=== PATIENT | male | born 2000 | race Caucasian/White ===

== ENCOUNTER 2023-05-23 15:17 | Emergency (ER) | payer OTHER, SELFPAY ==
[2023-05-23 15:24] VITALS: BP 132/82; PULSE 92; RESP 20; TEMP 36.4; O2SAT 100
--- NOTE | 2023-05-23 15:27 | ED.EXTPRO ---
HPI - Extremity Problem General Chief complaint: Extremity Problem,Nontraumatic Stated complaint: left foot painful area Time Seen by Provider: 05/23/23 15:33 Source: patient, RN notes reviewed and old records reviewed Mode of arrival: ambulatory Limitations: no limitations History of Present Illness HPI Narrative: 23-year-old male patient presents with complaint callus on the bottom left foot. Patient states has been hurting him. Patient denies any drainage. Patient denies injury. Patient denies any other complaints MD Complaint: extremity pain Onset (ago): day(s) (2-3) Related Data Home Medications Medication Instructions Recorded Confirmed No Home Medications 05/23/23 05/23/23 Allergies Allergy/AdvReac Type Severity Reaction Status Date / Time No Known Allergies Allergy Unverified 05/23/23 15:29 Review of Systems Constitutional: Constitutional: Reports no additional constitutional complaints Eyes: Eyes: Reports no additional eye complaints ENT: Reports system reviewed and no additional complaints, except as documented Cardiovascular: Cardiovascular: Reports no additional cardiovascular complaints Respiratory: Respiratory: Reports no additional respiratory complaints Integumentary/Breasts: Skin/Breast: Reports other ( sore on bottom of foot) Neurologic: Reports system reviewed and no additional complaints, except as documented PMFSH Comments At the time of my signature, I reviewed and agree with the nursing past medical, surgical, social, and family history. There is no relevant family history pertinent to the patient complaint. Exam Const: General: cooperative, healthy appearing, no acute distress and well nourished Nutritional Appearance: well nourished Orientation/consciousness: patient oriented x3 Limitations: no limitations HENMT: Head: normal to inspection and normocephalic Ears: external ears normal, TM's normal bilaterally, mastoids normal and Abnormal EAC present Face/Nose/Sinus: normal facial exam Face and sinus: normal facial exam Mouth: Yes Normal oral and palatal mucosa present, Yes oropharynx normal and Yes moist mucous membranes Throat: posterior oropharynx normal, tonsils normal, uvula midline and no uvular edema Eyes: General: appearance normal, both eyes and all related structures Sclera: sclerae normal Pupils: Equal, round and reactive pupils present Resp: Effort & Inspection: normal respiratory effort, able to speak in complete sentences, no audible wheezes, no cough, no respiratory distress and no retractions Auscultation: clear to auscultation bilaterally, no crackles, no rales, no rhonchi and no wheezes Cardio: Rate: regular rate Rhythm: regular rhythm Skin: General skin exam: normal color and no rashes or lesions noted Lesions: other ( plantar wart noted to the bottom of left foot) Neuro: General: patient oriented x3 Cranial nerves: Yes Equal, round and reactive pupils present Psych: Appearance: grossly normal Course Course Emergency Course: Some parts of this dictation were generated by voice recognition software and may contain typographical and/or grammatical inaccuracies. Level of Care: Express Care Visit Vital Signs Vital signs: Vital Signs Temperature 97.6 F 05/23/23 15:24 Pulse Rate 92 05/23/23 15:24 Respiratory Rate 20 05/23/23 15:24 Blood Pressure 132/82 05/23/23 15:24 Pulse Oximetry 100 05/23/23 15:24 Oxygen Delivery Room Air 05/23/23 15:24 Temperature 97.6 F 05/23/23 15:24 Pulse Rate 92 05/23/23 15:24 Respiratory Rate 20 05/23/23 15:24 Blood Pressure 132/82 05/23/23 15:24 Pulse Oximetry 100 05/23/23 15:24 Oxygen Delivery Room Air 05/23/23 15:24 Reviewed MDM - Extremity (Nontraumatic) MDM Narrative Medical decision making narrative: patient with plantar wart on the bottom of it. No signs or symptoms of infection. Patient instructed on [id number] treatment and to follow up with
== END 2023-05-23 15:43 | disposition home or self-care (01) ==
PROVIDERS: Emergency Provider Registered Nurse
DX: B07.0 Plantar wart (principal)
CPT/HCPCS: 99202; G0463